=== PATIENT | male | born 1940 | race Caucasian/White ===

== ENCOUNTER 2024-02-05 09:17 | Inpatient (IN) | payer MEDICARE, BC, SELFPAY ==
[2024-02-03] VITALS (27 sets, daily range): BP systolic 99–137; BP diastolic 46–91
[2024-02-03] MEDS: NSS 223 ML IV (08:15)
[2024-02-03 08:16] LABS: Glucose - Point of Care 166 mg/dl (70-99)
--- NOTE | 2024-02-03 09:37 | ITS.CL.CATH ---
Script Coordinator - Catheterization
Cardiac Catheterization
Procedure Report:
CARDIAC CATHETERIZATION REPORT
Date of Procedure: 02/03/2024
Referring: Carlo Raines DO
Indication: Worsening angina in patient with known diffuse CAD and history CABG. Of note patient has a christopher josh aspirin allergy
�
HEMODYNAMIC DATA
AO: 137/58
LV: 140/12
�
LEFT VENTRICULOGRAPHY: Normal segmental wall motion with EF 59%
�
CORONARY ANGIOGRAPHY
Dominance: Right
Left Main: Normal
LAD: The LAD is occluded distal to the origin of the first septal narcotics and vice detective and medium sized first diagonal branch. There is 90% proximal stenosis in the first diagonal branch. The mid and distal LAD fill via a widely patent PIRES graft which
touches down in the mid LAD with excellent distal runoff. There is no LAD disease distal to the SHANA graft touchdown site and there is retrograde flow up the LAD from the graft to supply a large branching D2 and multiple septal perforators.
Circumflex: The circumflex is occluded distal to the takeoff of the relatively large OM1. OM1 has a 90% proximal to mid stenosis and then is occluded in the mid to distal segment. There is a bridging collateral which fills the distal vessel.
There is evidence that the vein graft to this vessel was stented just proximal to and at the touchdown site.. This graft itself is occluded.
RCA: The RCA is dominant with multiple stents in the proximal and mid vessel extending to proximal to the crux. There is 60% stenosis in the most distal portion of the stented segment. There is 60-70% distal RCA stenosis just past the crux. There
is 30% distal RCA stenosis proximal to a widely patent stent in the distal vessel proximal to the takeoff of the large PDA. The RPDA has relatively focal 80% mid stenosis just past a bifurcation point. The lesion is in the much larger daughter
branch. The RCA then gives rise to two small diseased RPL's and terminates with a large RPL 3. There is 60-70% AV groove stenosis proximal to the RPL 3
Bypass grafts:
1. The left internal mammary graft to the LAD remains widely patent with excellent runoff
2. Vein grafts to the OM1 and presumably RPDA were shown to be occluded on prior studies
�
Closure Device: None-the procedure was performed via the left radial artery. The Catarino's test was normal prior to the procedure.
�
Radiation (mGy): 451
DAP (cm2.Gy): 39.7
Fluoroscopy time: 4.3 minutes
�
CONCLUSIONS
1:�Normal left ventricular function with EF 59%
2:�Very severe multivessel [place] CAD with patent PIRES-LAD bypass graft.
3. Due to his worsening symptoms despite medical therapy, I have offered multisegment PCI of the RCA and we may also treat the diagonal branch of the LAD. He has a an aspirin allergy and will need aspirin desensitization prior to proceeding with
PCI. We will admit him to the hospital today for aspirin desensitization and then proceed with PCI tomorrow
�
�
Copy to: Carlo Raines DO, Chadwick Bacon MD
�
Luis Russell MD, [facility], [facility]
--- NOTE | 2024-02-03 10:51 | PTCARENOTE ---
patient arrived from color laboratory technician with left radial R band intact,distal pulse palpable. monitor shows NSR, VSS. patient is admitted for aspirin desensitization , waiting for pharmacy to initiate protocol. please see medication desensitization on work
list.
[2024-02-03] MEDS: ASPIRIN FOR DESENSITIZATION 5 MG PO (11:31)
[2024-02-03] MEDS: ASPIRIN FOR DESENSITIZATION 10 MG PO (12:03)
[2024-02-03] MEDS: ASPIRIN FOR DESENSITIZATION 20 MG PO (12:30)
[2024-02-03] MEDS: ASPIRIN FOR DESENSITIZATION 40 MG PO (13:01)
--- NOTE | 2024-02-03 13:04 | CM ---
Reviewed chart. Met with and Mrs. Mckeon to review discharge plans. He states prior to admission he resides with his spouse in a two story home with one step to enter from the garage. He states he has a fist floor set-up. He states prior to
admission he was independent with ambulation and adls. He states he does not have any DME in the home. He states he has a prescription plan and uses [facility]. The discharge plan is to return home with his spouse when medically stable.
[2024-02-03] MEDS: LOW STRENGTH ASPIRIN 81 MG PO (13:31)
--- NOTE | 2024-02-03 14:55 | PTCARENOTE ---
aspirin desensitization completed with no reaction, TT Dr. Russell.
[2024-02-03] MEDS: LOPRESSOR 25 MG PO (21:38)
[2024-02-03] MEDS: FLOMAX 0.4 MG PO (21:39)
[2024-02-03 22:25] LABS: Glucose - Point of Care 143 mg/dl (70-99)
[2024-02-04] VITALS (17 sets, daily range): BP systolic 78–119; BP diastolic 43–66
[2024-02-04 04:11] LABS: Hematocrit 30.6 % (39.0-52.0); Hemoglobin 10.6 g/dL (13.0-18.0); Mean Corp Hgb Conc. 34.6 g/dL (33.0-37.0); Mean Corpuscular Hgb 27.4 pg (27.0-31.0); Mean Corpuscular Volume 79.1 fL (80.0-94.0); Mean Platelet Volume 10.1 fL (7.4-10.4); Platelet Count 160 10^3/uL (130-400); Red Blood Cell Count 3.87 10^6/uL (4.70-6.10); Red Cell Dist. Width 14.6 % (11.5-14.5); White Blood Cell Count 5.4 10^3/uL (4.8-10.8)
[2024-02-04 04:32] LABS: Blood Urea Nitrogen 24 mg/dl (9-20); Calcium 9.5 mg/dl (8.4-10.2); Carbon Dioxide 25 mmol/L (22-30); Chloride 106 mmol/L (98-107); Estimated Creatinine Clearance 55 ml/min; Glucose 147 mg/dl (70-99); HDL Cholesterol 37 mg/dl; LDL Cholesterol, Calculated 74 mg/dl; Magnesium 1.7 mg/dl (1.6-2.3); Potassium 4.3 mmol/L (3.5-5.1); Sodium 137 mmol/L (135-145); Total Cholesterol 134 mg/dl (50-199); Triglyceride 119 mg/dl (10-149); Very Low Density Lipoprotein 23 mg/dl (0-30); eGFR > 60.00
--- NOTE | 2024-02-04 06:14 | PTCARENOTE ---
Pt. received at change of shift. VSS, NSR with BBB on tele. L radial cath site dry/intact. Education provided on activity restrictions and patient verbalizes understanding. Patient remains NPO for cardiac cath in AM. Ambulating independently
without difficulty. Can make needs known. Call valdez within reach.
[2024-02-04] MEDS: ZESTRIL 10 MG PO (09:18)
[2024-02-04] MEDS: LOPRESSOR 25 MG PO (09:19)
[2024-02-04] MEDS: LOW STRENGTH ASPIRIN 81 MG PO (09:19)
[2024-02-04] MEDS: IMDUR (EXTENDED RELEASE) 120 MG PO (09:19)
[2024-02-04] MEDS: ORETIC 25 MG PO (09:19)
[2024-02-04] MEDS: LIPITOR 40 MG PO (09:19)
[2024-02-04] MEDS: PLAVIX 75 MG PO (09:19)
--- NOTE | 2024-02-04 10:58 | CM ---
CM following for DC planning needs.
Met w/ patient and family at bedside. Reviewed in initial assessment. Pt. resides with spouse in a 55+ community. Pt. is functionally indep. w/ ADLs, mobility without the use of any assisted device.
Goal is for DC to home once medically stable.
Will follow for any needs that may arise.
[2024-02-04 13:13] LABS: ACT-LR - POC > 397 Seconds (116-155)
[2024-02-04 13:13] LABS: ACT-LR - POC > 397 Seconds (116-155)
[2024-02-04 13:13] LABS: ACT-LR - POC > 397 Seconds (116-155)
--- NOTE | 2024-02-04 13:26 | ITS.CL.ANGIO ---
Padded Box Sewer - Angioplasty
Angioplasty
Procedure Report:
CORONARY ANGIOPLASTY REPORT
Date of Procedure: 02/04/2024
Referring: Carlo Raines DO
Indication: Progressive angina with known severe CAD refractory to medical therapy
�
PROCEDURE SUMMARY:
1. Successful angioplasty and stenting of long segment mid to distal RCA disease using 3.0 x 38 [place] ABIGAIL
2. Successful stenting of 90% mid RPDA stenosis using 2.25 x 15 [place] ABIGAIL
3. Successful stenting of focal 70% distal RPL stenosis using 2.5 x 8 [place] ABIGAIL
�
DESCRIPTION OF PROCEDURE: The patient was admitted following diagnostic angiography yesterday for aspirin desensitization which was successfully accomplished yesterday. Using a micropuncture technique, 6 [place] sheath was placed in the right
femoral artery. Heparin was administered. A 6 [place] AL 0.75 guide was advanced to the RCA and provided truly outstanding backup support. This was one león to what was going to be a very challenging multisegment intervention. A short BMW wire was
advanced into the distal RCA and eventually across the distal RPL stenosis. A whisper wire was then advanced into the RCA and eventually across the mid RPDA stenosis. Balloon angioplasty of the RPDA lesion was accomplished with a 2.0 x 12 [place]
balloon to 14 dee. Of note, there was a waist on the balloon until we reached maximal pressure at which time it was completely relieved. We then attempted to advance a 2.25 x 15 [place] ABIGAIL to the lesion; however, it would not pass through the severe
mid RCA disease. The stent was carefully removed and predilatation of the mid RCA disease accomplished with a 2.75 x 15 NC Euphora to 18 dee. We used this balloon to treat the mid and mid to distal RCA disease. This allowed us to get the 2.25 x
15 [place] ABIGAIL to the target location where it was deployed at 14 dee then postdilated with a 2.25 NC Euphora to 17 dee. The final angiographic result in the RPDA was outstanding with no residual stenosis. At this point we attempted unsuccessfully to
pass a 2.5 x 8 [place] ABIGAIL to the distal RPL lesion. The whisper wire was removed from the PDA to allow us to place a guide liner over the BMW wire which had its tip in the distal RPL. Further angioplasty was performed of the distal RCA using a 3.0 x
15 NC Euphora. This allowed us to get the guide liner distally enough to pass the 2.5 x 8 [place] ABIGAIL to the target location in the right posterolateral branch. The stent was deployed at 14 dee then postdilated with a 2.5 x 6 NC Euphora to 17 dee.
The angiographic result was outstanding. Finally, we stented the long segment of disease in the mid to distal RCA the proximal two thirds of which represented in-stent disease with the distal third being outside of the stented segment. A 3.0 x 38
[place] ABIGAIL was deployed at 18 dee to achieve maximal expansion. A 3.25 NC Euphora was then used to post dilate the entire stented segment to 17-19 dee. The final angiographic result was outstanding. There were no procedural complications.
�
ANTI-COAGULATION THERAPY
1:�Heparin 6000 units
�
Closure Device Used: 6 [place]ese Angio-Seal RFA
�
Radiation (mGy): 672
DAP (cm2.Gy): 46
Fluoroscopy time: 17.9 minutes
�
CONCLUSIONS: Successful stenting of multisegment RCA disease as described. Recommend continue dual antiplatelet therapy for minimum 12 months. If aspirin is stopped at any time he will require repeat desensitization before reintroducing aspirin;
therefore, strongly recommend adherence to uninterrupted aspirin for at least the next 12 months
�
Copy to: Carlo Raines DO, Chadwick Bacon MD
�
Luis Russell MD, [facility], [facility]
�
--- NOTE | 2024-02-04 14:42 | PTCARENOTE ---
Addendum entered by Denice Blakely RN 02/04/24 18:43:
patient up in chair eating dinner, still has discomfort in left shoulder/arm area. right groin dsg. D/I, distal pulse palpable. will continue to assess.
Original Note:
patient returned from biological lab technician at 1336, placed on monitor SB, BP 91/54, right groin dsg. D/I,no hematoma, no ecchymosis,distal pulse palpable. IVF infusing as ordered. patient c/o left shoulder/arm pain, Dr. aware.
at 1407 BP82/48,78/46, 92/43 , placed patient in Trendelenburg, pale, discomfort in left arm. EKG obtained. Diana Coelho NP in room, BP came up,right groin remains D/I. 1 L of IVF given as ordered.
[2024-02-04] MEDS: TYLENOL 650 MG PO (18:46)
--- NOTE | 2024-02-04 18:47 | PTCARENOTE ---
Tylenol po given for shoulder/arm pain as ordered.
--- NOTE | 2024-02-04 21:46 | PTCARENOTE ---
Received the patient for the night in the chair. R femoral and L radial dressings CDI. SR on the monitor. Patient has no complaints of pain. BP 95/52, contacted Dr. Smiley for Lopressor parameters due to low BPs post procedure. As per Dr. Smiley
8pm dose of Lopressor held.
[2024-02-04] MEDS: FLOMAX 0.4 MG PO (22:18)
[2024-02-05] VITALS (19 sets, daily range): BP systolic 84–151; BP diastolic 47–76
[2024-02-05 04:40] LABS: Hematocrit 31.6 % (39.0-52.0); Hemoglobin 10.9 g/dL (13.0-18.0); Mean Corp Hgb Conc. 34.5 g/dL (33.0-37.0); Mean Corpuscular Hgb 28.1 pg (27.0-31.0); Mean Corpuscular Volume 81.4 fL (80.0-94.0); Mean Platelet Volume 9.4 fL (7.4-10.4); Platelet Count 136 10^3/uL (130-400); Red Blood Cell Count 3.88 10^6/uL (4.70-6.10); Red Cell Dist. Width 14.9 % (11.5-14.5); White Blood Cell Count 5.5 10^3/uL (4.8-10.8)
[2024-02-05 05:04] LABS: Blood Urea Nitrogen 27 mg/dl (9-20); Calcium 9.3 mg/dl (8.4-10.2); Carbon Dioxide 23 mmol/L (22-30); Chloride 106 mmol/L (98-107); Estimated Creatinine Clearance 55 ml/min; Glucose 163 mg/dl (70-99); Potassium 3.9 mmol/L (3.5-5.1); Sodium 135 mmol/L (135-145); eGFR > 60.00
[2024-02-05] MEDS: NITROSTAT (SUBLINGUAL) 0.4 MG SL ×2 (05:45→06:01)
--- NOTE | 2024-02-05 06:06 | PTCARENOTE ---
At 05:30 Patient complains of 5/10 chest pain in the center of his chest and both arms that he describes as aching. An EKG was obtained and showed SR with BBB. Patient also showed some tachycardia on the monitor. 05:45 SL Nitro was administered with
the pain being a 5/10. at 05:51 the pain was reassessed as a 4/10. Another SL Nitro was given at 06:01 for 3/10 chest pain. Present pain level is 0/10.
--- NOTE | 2024-02-05 06:48 | W.PN.UPDATE ---
Update Note
Progress Note Update
-pt c/o 6/10 CP at 5:45 am, felt similar to his prior CP. BP was 150/75, hr 94, pOx 100 on RA. ECG with nsr, RBBB with secondary STTW abnormalities without much change from ECG on 02/03. Pt had 3 stents on 02/03 to RCA, RPDA, and RPL. He has known 90%
stenosis of OM1 and D1 with patent [place] to LAD and occluded 2 vein grafts.
-gave 2 sublingual Nitros, started O2 and CP resolved. BP after Nitros is 125/67. Pt appears more comfortable.
-sent troponin- pending
-discussed with Dr. Smiley. Will consider Nitro drip if develops more sxs. Will continue to monitor.
[2024-02-05 06:49] LABS: Troponin I 0.504 ng/ml
[2024-02-05] MEDS: TYLENOL 650 MG PO (08:08)
[2024-02-05] MEDS: LIPITOR 40 MG PO (08:09)
[2024-02-05] MEDS: IMDUR (EXTENDED RELEASE) 120 MG PO (08:09)
[2024-02-05] MEDS: PLAVIX 75 MG PO (08:09)
[2024-02-05] MEDS: ORETIC 25 MG PO (08:09)
[2024-02-05] MEDS: LOPRESSOR 25 MG PO (08:09)
[2024-02-05] MEDS: LOW STRENGTH ASPIRIN 81 MG PO (08:09)
--- NOTE | 2024-02-05 08:32 | W.PN.CARDCBS ---
Today's Communication / Plan
-
post PCI RCA x 3
DAPT ASA/Plavix
medical therapy for residual small vessel disease
oob ambulate this am, poss d/c home later today
Impression / Plan
-
PCP: Chadwick Bacon MD
CDY: Carlo Raines, DO
Impression/Plan:
CAD/CABGx4 1999- MV CAD by cath 02/02, Aspirin allergy - anaphylaxis post successful desensitization now post PCI mid RCA, RPDA and RPL x3 ABIGAIL 02/03
had some chest pain o/n improving this am, insignificant troponin elevation d/t MV stenting
medical therapy for small diagonal 1, PIRES to LAD patent
DAPT ASA/Plavix, reinforced importance of NEVER stopping ASA ever
continue isosorbide 120, BB held for low bp last night, HR elevated this am, resume now switch to toprol 25mg bid
BP low last night will stop HCTZ and decrease lisinopril to 5mg daily
Cardiac rehab c/s
f/u Dr. Raines 2-4 weeks
oob ambulate after am meds to assess chest pain
Hyperlipidemia - LDL 74 goal under 55, will stop simvastatin switch to atorvastatin 40mg daily
NIDDM - Check A1c, holding Janumet post procedures, resume on friday evening
BPH - continue tamsulosin
Prostate cancer
RBBB
SVT
Mild aortic root dilatation
mild MARY
Cataracts
02/04/2024 PROCEDURE SUMMARY:
1. Successful angioplasty and stenting of long segment mid to distal RCA disease using 3.0 x 38 Elie ABIGAIL
2. Successful stenting of 90% mid RPDA stenosis using 2.25 x 15 [place] ABIGAIL
3. Successful stenting of focal 70% distal RPL stenosis using 2.5 x 8 [place] ABIGAIL
Progress Note - Veterinary Medical Officer
Subjective
Date of Service: February 05, 2024
still with mild 2/10 chest/b/l arm pain, no sob
Objective
Labs:
02/05/24 04:34
02/05/24 04:34
Labs
Hgb 10.9 g/dL (13.0-18.0) L 02/05/24 04:34
Hct 31.6 % (39.0-52.0) L 02/05/24 04:34
Plt Count 136 10^3/uL (130-400) 02/05/24 04:34
Sodium 135 mmol/L (135-145) 02/05/24 04:34
Potassium 3.9 mmol/L (3.5-5.1) 02/05/24 04:34
BUN 27 mg/dl (9-20) H 02/05/24 04:34
Creatinine 0.9 mg/dL (0.7-1.3) 02/05/24 04:34
Glucose 163 mg/dl (70-99) H 02/05/24 04:34
Troponins
02/05/24
06:12
Troponin I 0.504 H*
Vital Signs and I&O:
Vital Signs
Temp Pulse Resp BP Pulse Ox
98.6 F 87 20 118/59 97
02/05/24 07:30 02/05/24 07:31 02/05/24 07:30 02/05/24 07:31 02/05/24 08:23
Vital Signs
Temp Pulse Resp BP Pulse Ox
98.6 F 87 20 118/59 97
02/05/24 07:30 02/05/24 07:31 02/05/24 07:30 02/05/24 07:31 02/05/24 08:23
Intake & Output
02/03/24 02/04/24 02/05/24 02/06/24
06:59 06:59 06:59 06:59
Intake Total 223 / 223
Balance 223 / 223
Physical Exam
Physical Exam
NAD< AAox3
S1, S2, RRR, II/ YG
CTAB, non labored, no wheeze
SNTND bsx4
R rad site good pulse, scant ecchymosis
R fem site c/d/i soft, no HT
--- NOTE | 2024-02-05 09:14 | W.PN.UPDATE ---
Update Note
Progress Note Update
Post complex multisegment RCA PCI yesterday. Had some chest symptoms walking to bathroom. Troponin 0.5 totally consistent with complex PCI and not indicative of a type IV myocardial infarction.
ECG this AM unchanged vs pre and post PCI
Plan to walk pt this AM and discharge after lunch if stable.
[2024-02-05] MEDS: ZESTRIL PO (09:25)
--- NOTE | 2024-02-05 11:14 | CM ---
CM following for DC planning needs.
Met w/ patient at bedside. He reports that he is feeling well. He is hopeful for DC soon but not sure it will be today.
Pt. anticipates no needs at time of DC.
CM will cont. to follow.
--- NOTE | 2024-02-05 13:54 | PTCARENOTE ---
Pt walked <100 feet this morning and reported 1-2/10 chest discomfort by the end of the walk, Nataly Pearl NP notified. After lunch pt walked around entire CV/IVU without chest discomfort. Some low BP's this morning, medications being adjusted by Nataly
TOM Pearl.
--- NOTE | 2024-02-05 14:30 | W.DS.TRANS ---
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
-
Discharge Instructions:
Discharge Diagnosis/Procedures Aspirin desensitization 02/02, Angioplasty with
stent to RCA x 3 (02/03)
Diet Low Cholesterol,Diabetic, Carb Controlled
Driving Restrictions No driving for 24 hours
Other Services Cardiac Rehab
Instructions:
Stand-Alone Forms: DC Instructions- Cath/EP Lab
Changes to Home Medications: Yes
Discharge Medications:
DC Medications w/original date entered in [employer]
clopidogrel 75 mg tablet 75 mg PO DAILY 01/06/19
tamsulosin 0.4 mg capsule 0.4 mg PO HS 01/06/19
acetaminophen 325 mg capsule (Tylenol) 325 mg PO ONCE PRN pain 04/12/22
nitroglycerin 0.4 mg sublingual tablet 0.4 mg sublingual Q5-15M PRN chest pain 04/12/22
sitagliptin phos 50 mg-metformin ER 1,000 mg tablet,extend rel 24h mp (Janumet XR) 1 tab PO QPM 04/12/22
isosorbide mononitrate 30 mg tablet,extended release 24 hr 120 mg PO DAILY 02/03/24
aspirin 81 mg chewable tablet 81 mg PO DAILY #1 tab 02/05/24
atorvastatin 40 mg tablet 40 mg PO DAILY #90 tabs 02/05/24
lisinopril 10 mg tablet 5 mg (1/2 x 10 mg) PO DAILY #1 tab 02/05/24
metoprolol succinate 25 mg tablet,extended release 24 hr 25 mg PO BID #60 tabs 02/05/24
Home Medication Changes
stop HCTZ, metoprolol tartrate, and simvastatin, decrease lisinopril to 5mg, new to plavix, nitro, atrovastatin and toprol
Pending Results: Yes
Additional Pending Results:
A1c
[2024-02-05 14:36] LABS: Glycohemoglobin (HgbA1c) 6.7 % (4.0-5.6)
--- NOTE | 2024-02-05 16:03 | PTCARENOTE ---
Pt seen by Nataly Pearl NP. Telemetry and IV device removed. Discharge instructions reviewed with pt regarding activity and driving guidelines, medications and their new doses and possible side effects, wound care, reporting cares and concerns and
follow up appt's. Good understanding verbalized. Pt escorted out via wheelchair and discharged to home.
== END 2024-02-05 15:10 | disposition home or self-care (01) | DRG 322 ==
LOC: IVU 09:17
PROVIDERS: Nurse Practitioner Adult Health; Physician Assistant Medical; ADMITTING PHYSICIAN Internal Medicine Cardiovascular Disease; FAMILY PHYSICIAN Family Medicine
PROC: B2181ZZ Fluoroscopy of Left Internal Mammary Bypass Graft using Low Osmolar Contrast (ICD-10-PCS; 2024-02-03)
PROC: B2151ZZ Fluoroscopy of Left Heart using Low Osmolar Contrast (ICD-10-PCS; 2024-02-03)
PROC: B2111ZZ Fluoroscopy of Multiple Coronary Arteries using Low Osmolar Contrast (ICD-10-PCS; 2024-02-03)
PROC: 4A023N7 Measurement of Cardiac Sampling and Pressure, Left Heart, Percutaneous Approach (ICD-10-PCS; 2024-02-03)
PROC: B2121ZZ Fluoroscopy of Single Coronary Artery Bypass Graft using Low Osmolar Contrast (ICD-10-PCS; 2024-02-03)
PROC: 027236Z Dilation of Coronary Artery, Three Arteries with Three Drug-eluting Intraluminal Devices, Percutaneous Approach (ICD-10-PCS; 2024-02-04)
DX: I25.110 Atherosclerotic heart disease of native coronary artery with unstable angina pectoris (principal); I47.10 Supraventricular tachycardia, unspecified; Z88.6 Allergy status to analgesic agent; E78.5 Hyperlipidemia, unspecified; E11.9 Type 2 diabetes mellitus without complications; N40.0 Benign prostatic hyperplasia without lower urinary tract symptoms; I45.10 Unspecified right bundle-branch block; H26.9 Unspecified cataract; Z85.46 Personal history of malignant neoplasm of prostate; Z95.1 Presence of aortocoronary bypass graft; Z95.5 Presence of coronary angioplasty implant and graft
CPT/HCPCS: 80048; 80061; 82962; 83036; 83735; 84484; 85027; 85347; 93005; 93459; C1725; C1760; C1769; C1874; C1887; C1894; C9600; C9601; Q9967

== ENCOUNTER 2024-02-06 19:51 | Observation (INO) | payer MEDICARE, BC, SELFPAY ==
[2024-02-06] VITALS (9 sets, daily range): BP systolic 95–136; BP diastolic 49–66; BMI 27.9; BMI 27.3
[2024-02-06 17:30] LABS: Hematocrit 30.8 % (39.0-52.0); Hemoglobin 10.6 g/dL (13.0-18.0); Mean Corp Hgb Conc. 34.4 g/dL (33.0-37.0); Mean Corpuscular Hgb 27.8 pg (27.0-31.0); Mean Corpuscular Volume 80.8 fL (80.0-94.0); Mean Platelet Volume 9.7 fL (7.4-10.4); Platelet Count 171 10^3/uL (130-400); Red Blood Cell Count 3.81 10^6/uL (4.70-6.10); Red Cell Dist. Width 14.8 % (11.5-14.5)
[2024-02-06 17:53] LABS: Blood Urea Nitrogen 30 mg/dl (9-20); Calcium 9.8 mg/dl (8.4-10.2); Carbon Dioxide 22 mmol/L (22-30); Chloride 101 mmol/L (98-107); Estimated Creatinine Clearance 33 ml/min; Glucose 199 mg/dl (70-99); Potassium 3.8 mmol/L (3.5-5.1); Sodium 134 mmol/L (135-145); eGFR 49.87
[2024-02-06 18:03] LABS: Troponin I 0.332 ng/ml
--- NOTE | 2024-02-06 18:15 | ED.GENMED ---
History of Present Illness
General
Chief Complaint: Chest Pain
Source: patient
Exam Limitations: none
Time Seen by Provider: 02/06/24 17:14
Nursing documentation reviewed up to this point in time: agreed with
History of Present Illness
History of Present Illness:
Patient is status post cardiac stent placement 2 days ago, discharged home yesterday, presents to ED secondary to recurrent chest pain since being discharged home. Patient has taken nitroglycerin tablets at home with mild relief in symptoms.
Patient spoke with his primary plumbing manager, Dr. Raines at [facility], who recommended patient come to ED for an evaluation. Denies shortness of breath. Denies nausea or vomiting. Denies dizziness. Denies diaphoresis. Patient states
that his chest pain is similar to when he received cardiac stents.
Review of Systems
Review of Systems
Allergies reviewed?: Yes
All Other Systems: ROS reviewed and negative except as documented in HPI and ROS
Constitutional: Reports no symptoms
Respiratory: Reports no symptoms; Denies trouble breathing
Cardiac: Reports chest pain
ABD/GI: Reports no symptoms
Musculoskeletal: Reports no symptoms
Skin: Reports no symptoms
Neurological: Reports no symptoms
Phy Exam
Physical Exam
Physical Exam:
Physical Exam
General: mild distress, not acutely ill. afebrile
Head: nc/at. eomi
Neck: supple. no meningeal signs
Heart: s1/s2 regular rate and rhythm, no murmur. equal radial pulses.
Lungs: no acute respiratory distress. clear bilaterally
Abdomen: normal bowel sounds. not tender.
Neuro: alert and oriented. no focal neurological deficits
Skin: no rash
Psychiatric: well kept. interactive and cooperative
Extremities: no edema. no calf tenderness.
Scores
Heart Score for Chest Pain Patients
STEMI patient?: No
History: Moderately Suspicious
ECG: Nonspecific Repolarization
Age: >/= 65 years
Risk Factors: >/= 3 Risk Factors or History of CAD
Troponin: >1 - <3 x Normal Limit
Heart Score for Chest Pain Patients: 7
Heart Score Risk: 72.7 % MACE over next 6 weeks
Course
Orders/Labs/Results
Orders:
Orders
02/06/24 Dinner
Regular
At Your Request: Limited Participation
Does patient need a safe tray?: No
02/06/24 16:53
EKG [Electrocardiogram (*1)] Urgent
Reason for Study: Chest Pain
EKG- Treatment ONCE
02/06/24 17:15
CR Chest Portable - 1 View Urgent
Comment:
Reason For Exam: chest pain
Reason Study Needs to be Portable: Patient Unstable
02/06/24 17:25
Basic Metabolic Panel Urgent
Complete Blood Count/No Diff Urgent
Troponin I Urgent
02/06/24 19:22
Admit/Transfer Patient As Directed
Co-Sign Provider:
Level of Care: Observation services
Assign to:: Telemetry
Physician / Group: dannie
Diagnosis: chest pain
Reason for Telemetry: Arrhythmia
Date to Stop Telemetry: 02/09/24
Time to Stop Telemetry: 11:00
Code Status As Directed
Resuscitation Status: Full Code
PRN Pain Medication Management As Directed
May give lesser potent ordered pain med per pt: Yes
preference::
Protocol:: Medication orders for pain may be administered in a
manner that supports deferring to patient preference
when the pt is:
- Requesting an ordered lesser potent pain medication.
Least to most potent pain medications are defined
as: acetaminophen < NSAID < tramadol < opioids
(morphine, oxycodone, hydromorphone).
- Requesting a lesser dose of the same medication IF
ORDERED.
- Requesting a less intrusive route of administration
if both routes are prescribed by the provider (PO <
IV).
02/06/24 20:16
0.9% Sodium Chloride 1000 ml [Nss] 1,000 ml IV 70 mls/hr
Acetaminophen [Tylenol] 325 mg PO ONCE PRN PRN
Dextrose 50%-Water [Dextrose 50% Syringe] 12.5 grams IV [id number] PRN
Glucagon [GlucaGen] 1 mg IM PRN PRN
Heparin 5,000 units SC Q12
Metoprolol Xl [Toprol Xl] 25 mg PO BID
Nitroglycerin Sublingual [Nitrostat (Sublingual)] 0.4 mg SL [id number] PRN
02/06/24 20:16
CARDIOLOGY CONSULT Routine
Consulting Provider: Barrie Nguyen
Was physician already notified: Yes
Activity As Directed
Activity Level: As Tolerated
Bedside Glucose Monitoring As Directed
Frequency: AC&HS
Additional Instructions:: Change to q6h if pt on TPN, tube feeding or not eating
Vital Signs As Directed
Frequency: Per unit guidelines
DX Deep Vein Thrombosis Video Routine
02/06/24 20:41
Troponin I Q6H
02/06/24 22:00
Tamsulosin [Flomax] 0.4 mg PO HS
02/07/24 02:16
Troponin I Q6H
02/07/24 06:48
Complete Blood Count/With Diff IN AM
Comprehensive Metabolic Panel IN AM
Troponin I Q6H
02/07/24 07:30
Insulin Aspart Corrective Low [Novolog Flexpen-Low Resistance] See Protocol SC AC
02/07/24 08:00
Aspirin Chewable [Low Strength Aspirin] 81 mg PO DAILY
Atorvastatin [Lipitor] 40 mg PO DAILY
Clopidogrel Bisulfate [Plavix] 75 mg PO DAILY
ISOSORBIDE MONOnitrate ER [Imdur (Extended Release)] 120 mg PO DAILY
02/09/24 11:00
DC Protocol for Telemetry ONCE
Abnormal Lab Results
02/06/24
17:25
RBC 3.81 L 10^6/uL
(4.70-6.10)
Hgb 10.6 L g/dL
(13.0-18.0)
Hct 30.8 L %
(39.0-52.0)
RDW 14.8 H %
(11.5-14.5)
Sodium 134 L mmol/L
(135-145)
BUN 30 H mg/dl
(9-20)
Creatinine 1.4 H mg/dL
(0.7-1.3)
Glucose 199 H mg/dl
(70-99)
Troponin I 0.332 H* ng/ml
02/06/24 17:25
02/06/24 17:25
Vital Signs
Initial and Last Documented VS:
Initial Vital Signs
Temp Pulse Resp BP Pulse Ox
98 F 89 18 95/65 96
02/06/24 16:52 02/06/24 16:52 02/06/24 16:52 02/06/24 16:52 02/06/24 16:52
Last Documented Vital Signs
Temp Pulse Resp BP Pulse Ox
98.0 F 70 16 117/51 96
02/07/24 07:55 02/07/24 07:57 02/07/24 07:55 02/07/24 07:57 02/07/24 07:55
MDM/Problems Addressed
MDM/Problems Addressed:
As patient is continued to have symptoms, despite recent catheterization with stent placement, likely secondary to residual disease, patient will be admitted for symptomatic treatment. Discussed with on-call plumbing manager, Dr. Nguyen, who
recommends that patient receive nitroglycerin as needed for chest pain along with continued trending of cardiac enzymes.
*EKG
EKG Intrepretation Date: 02/06/24
Heart Rate: 77
Rate: normal
[place]: normal axis
QRS Pattern: right bundle branch block
*Critical Care Note
Total Time (30-74mins, 75-104mins- exclusive of procedures): Not Applicable
ED Attending Note
-
Portions of this chart may have been created with voice recognition software.� Occasional wrong word or��sound alike� substitutions may have occurred due to the inherent limitations of voice recognition software.
Discharge Plan
Departure
Patient Disposition: Admit
Date of Disposition: 02/06/24
Time of Disposition: 18:21
Presentation/result/management discussed w/ accepting MD/DO: Hospitalist
Discharge Problem:
Chest pain
Interventions
Interventions:
*Risk Screen - Suicide Last Done: 02/06/24 16:52
*General Assessment Last Done: 02/06/24 16:52
*Neglect/Abuse Screening Last Done: 02/06/24 16:52
ED- Fall Risk Assessment Last Done: 02/06/24 20:14
*Nursing Disposition Last Done: 02/06/24 20:14
ED- Cardiac Assessment Last Done: 02/06/24 17:20
Discharge Date and Time
Discharge Date/Time: 02/06/24 20:14
--- NOTE | 2024-02-06 19:24 | HPS.HSE ---
Family Physician
-
Family Physician: NOT KNOW UNKNOWN - PT DOES
Chief Complaint
-
chest pain
History of Present Illness
83-year-old male past medical history of CAD status post stents 2 days ago, CABG 20 years ago, hyperlipidemia, diabetes, BPH, prostate cancer, right bundle branch for, SVT, mild aortic root dilation, cataracts, presenting with ongoing intermittent
chest pain despite cardiac stents placed 2 days ago. He has had this pain prior to the stents which is described as chest pressure which sometimes radiates to the jaw and sometimes comes on with exertion. After stents were placed he states that
the pain is improved but still comes on sometimes. Last night he could not sleep due to the pain and his heart rate was elevated. Pain did improve with nitroglycerin. He called his ear flap binder Dr. Raines at [facility] who told him to
come to the hospital. He denies any shortness of breath. He denies any nausea or vomiting. Denies any sweating.
He may have gained 2 pounds recently. He denies any lower extremity edema.
He denies smoking. He drinks wine sometimes.
Medical History
Past Medical History
Past Medical History: Reports Other (CAD status post stents 2 days ago, CABG 20 years ago, hyperlipidemia, diabetes, BPH, prostate cancer, right bundle branch for, SVT, mild aortic root dilation, cataracts, )
Past Surgical History: Reports None
Social History
Tobacco: Non-smoker
Alcohol: None
Drug: None
Family History
Family History: Not pertinent
Allergies / Home Medications
Allergies reflects when Allergies were last updated in [facility].
Home Medications with original date entered in [facility]
Allergy/Medication List:
Allergies
Allergy/AdvReac Type Severity Reaction Status Date / Time
aspirin Allergy Anaphylaxis Verified 02/04/24 20:23
Home Medications
clopidogrel 75 mg tablet 75 mg PO DAILY 01/06/19
tamsulosin 0.4 mg capsule 0.4 mg PO HS 01/06/19
acetaminophen 325 mg capsule (Tylenol) 325 mg PO ONCE PRN pain 04/12/22
nitroglycerin 0.4 mg sublingual tablet 0.4 mg sublingual Q5-15M PRN chest pain 04/12/22
sitagliptin phos 50 mg-metformin ER 1,000 mg tablet,extend rel 24h mp (Janumet XR) 1 tab PO BID 04/12/22
isosorbide mononitrate 30 mg tablet,extended release 24 hr 120 mg PO DAILY 02/03/24
aspirin 81 mg chewable tablet 81 mg PO DAILY #1 tab 02/05/24
atorvastatin 40 mg tablet 40 mg PO DAILY #90 tabs 02/05/24
lisinopril 10 mg tablet 5 mg (1/2 x 10 mg) PO DAILY #1 tab 02/05/24
metoprolol succinate 25 mg tablet,extended release 24 hr 25 mg PO BID #60 tabs 02/05/24
Review of Systems
-
History Source: Patient
A 12 point ROS was completed and negative except as noted: Yes
Constitutional: Reports No Symptoms
EENT: Reports No Symptoms
Respiratory: Reports See HPI
Cardiac: Reports See HPI
Abdomen/GI: Reports No Symptoms
: Reports No Symptoms
Musculoskeletal: Reports No Symptoms
Skin: Reports No Symptoms
Neurological: Reports No Symptoms
Endocrine: Reports No Symptoms
Hematologic/Lymphatic: Reports No Symptoms
Psych: Reports No Symptoms
Physical Exam
Vital Signs
Vital Signs
Temp Pulse Resp BP Pulse Ox
98 F 83 15 110/55 95
02/06/24 16:52 02/06/24 18:45 02/06/24 18:45 02/06/24 18:30 02/06/24 18:45
Physical Exam
General: Well Developed, Well Nourished and No Apparent Distress
HEENT: NormoCephalic, Moist mucous membranes and Atraumatic
Respiratory: Clear
Cardiac: S1/S2 and Regular Rhythm; No Murmur or Rub
GI: Soft, Non Tender, Non Distended and Normal Bowel Sounds; No Organomegaly
Rectal: Deferred by Provider
Musculoskeletal: No Clubbing, No Cyanosis and No Edema
Skin: No Rash
Neuro: Nonfocal/grossly intact
Laboratory Results
-
02/06/24 17:25
02/06/24 17:25
Laboratory Results
Troponin I 0.332 ng/ml H* 02/06/24 17:25
Data Reviewed
-
Lab Data: Labs Reviewed by me
Old Records: Reviewed
Impression/Plan
-
IMPRESSION:
PLAN:
# Ongoing chest pain despite cardiac stents
# History of severe CAD status post stent of mid to distal RCA, mid RPDA, distal RPL stenosis 2 days ago
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
-Troponin of 0.332, decreased from 0.504 yesterday
-Trend troponin
-Continue aspirin, Plavix, statin,
-Continue isosorbide mononitrate
-Nitroglycerin as needed
-Continue metoprolol
-Continue lisinopril
-cards
# Acute kidney injury secondary to contrast
-Gentle IV fluids
-Hold lisinopril
-Hold Janumet
Mild aortic root dilation
History of SVT
History of right bundle branch block
Hyperlipidemia
-Continue statin
Type 2 diabetes
-Hold Janumet
-Insulin sliding scale
BPH
-Continue tamsulosin
Prostate cancer
Cataracts
Full code
DVT prophylaxis�heparin
Regular diet
[2024-02-06] MEDS: HEPARIN 5000 UNITS SC (21:03)
[2024-02-06] MEDS: NSS 1000 IV (21:04)
[2024-02-06] MEDS: FLOMAX 0.4 MG PO (21:04)
[2024-02-06] MEDS: TOPROL XL 25 MG PO (21:04)
[2024-02-06 21:11] LABS: Troponin I 0.358 ng/ml
--- NOTE | 2024-02-06 21:30 | PTCARENOTE ---
Receive the pt from ER. Pt alert oriented X3, calm, pleasant and cooperative. Pt assist X1 to his bed, steady on his feet. Pt denies chest pain, SOB, chills, or fever. Pt oriented to the room, call valdez within reach. Pt on NSR on telemonitor. VSS
(T=97.9, HR=83, RR=18, XC=114/66, SpO2=96% on RA). Troponin was drawn came back 0.358, slightly up from 0.332 earlier in ER. Instruct the pt to call if there is any chest pain, SOB, or change in his condition. Will continue to monitor the pt.
[2024-02-06 21:32] LABS: Glucose - Point of Care 147 mg/dl (70-99)
[2024-02-07] VITALS (8 sets, daily range): BP systolic 100–131; BP diastolic 50–58; BMI 27.6
[2024-02-07 03:03] LABS: Troponin I 0.274 ng/ml
[2024-02-07 07:41] LABS: Glucose - Point of Care 195 mg/dl (70-99)
[2024-02-07] MEDS: NOVOLOG FLEXPEN-LOW RESISTANCE 1 UNITS SC ×2 (07:55→12:36)
[2024-02-07] MEDS: LOW STRENGTH ASPIRIN 81 MG PO (07:55)
[2024-02-07] MEDS: HEPARIN 5000 UNITS SC (07:56)
[2024-02-07] MEDS: TOPROL XL 25 MG PO (07:57)
[2024-02-07] MEDS: LIPITOR 40 MG PO (07:57)
[2024-02-07] MEDS: PLAVIX 75 MG PO (07:57)
[2024-02-07] MEDS: IMDUR (EXTENDED RELEASE) 120 MG PO (07:57)
[2024-02-07 08:00] LABS: % Basophils 0.4 % (0-2); % Eosinophils 3.3 % (0-6); % Immature Granulocytes 0.4 % (0-0.5); % Lymphocytes 17.8 % (20.5-51.1); % Monocytes 8.8 % (1.7-9.3); % Neutrophils 69.3 % (42.2-75.2); Absolute Eosinophils 0.2 10^3/uL (0-0.7); Absolute Lymphocytes 0.8 10^3/uL (1.2-3.4); Absolute Monocytes 0.4 10^3/uL (0.1-0.6); Absolute Neutrophils 3.1 10^3/uL (1.4-6.5); Hematocrit 30.2 % (39.0-52.0); Hemoglobin 10.3 g/dL (13.0-18.0); Mean Corp Hgb Conc. 34.1 g/dL (33.0-37.0); Mean Corpuscular Hgb 27.3 pg (27.0-31.0); Mean Corpuscular Volume 80.1 fL (80.0-94.0); Mean Platelet Volume 10.5 fL (7.4-10.4); Nucleated Red Blood Cells % 0 % (-); Platelet Count 161 10^3/uL (130-400); Red Blood Cell Count 3.77 10^6/uL (4.70-6.10); Red Cell Dist. Width 14.7 % (11.5-14.5); White Blood Cell Count 4.5 10^3/uL (4.8-10.8)
[2024-02-07 08:46] LABS: Troponin I 0.266 ng/ml
[2024-02-07 08:55] LABS: ALT (SGPT) 12 U/L (0-50); AST (SGOT) 16 U/L (17-59); Albumin 3.7 g/dl (3.5-5.0); Alkaline Phosphatase 61 U/L (38-126); Blood Urea Nitrogen 23 mg/dl (9-20); Calcium 8.9 mg/dl (8.4-10.2); Carbon Dioxide 22 mmol/L (22-30); Chloride 106 mmol/L (98-107); Estimated Creatinine Clearance 47 ml/min; Glucose 164 mg/dl (70-99); Potassium 3.7 mmol/L (3.5-5.1); Sodium 136 mmol/L (135-145); Total Bilirubin 0.9 mg/dl (0.2-1.3); Total Protein 6.1 g/dl (6.3-8.2); eGFR > 60.00
--- NOTE | 2024-02-07 11:07 | W.PN.HOSP.TC ---
Today's Communication/Plan
-
await cards input
Assessment / Plan
Assessment / Plan
pt is an 83 year old male
chest pain (ongoing) despite cardiac stents 02/03--was d/c 02/04 (History of severe CAD status post stent of mid to distal RCA, mid RPDA, distal RPL stenosis 2 days ago)(History of quadruple CABG 20 years ago)--troponin downtrending (0.504 to
0.332)--await cards-Continue aspirin, Plavix, statin-Continue isosorbide mononitrate-Nitroglycerin as needed-Continue metoprolol-Continue lisinopril
Acute kidney injury secondary to contrast--resolved--restart janument--hold lisinopril for now
Mild aortic root dilation
History of SVT
Hyperlipidemia--Continue statin
Type 2 diabetes--restart Janumet--Insulin sliding scale
BPH--Continue tamsulosin
Prostate cancer
Cataracts
Full code
DVT prophylaxis�heparin
Anticipated Discharge: Within 24 hours
Subjective/Interval History
-
Date of Service: February 07, 2024
pt chest pain free
Objective Data
-
Labs:
Laboratory Results
02/07/24
06:48
WBC 4.5 L
Hgb 10.3 L
Hct 30.2 L
Plt Count 161
Sodium 136
Potassium 3.7
Chloride 106
Carbon Dioxide 22
BUN 23 H
Creatinine 1.0
Glucose 164 H
Calcium 8.9
Total Bilirubin 0.9
AST 16 L
ALT 12
Alkaline Phosphatase 61
Vital Signs:
max temp for 24 hours
02/07/24
03:18
Temp 98.3 F
Vital Signs
Temp Pulse Resp BP Pulse Ox
98.0 F 70 16 117/51 96
02/07/24 07:55 02/07/24 07:57 02/07/24 07:55 02/07/24 07:57 02/07/24 07:55
I&O
02/06/24 02/07/24 02/08/24
06:59 06:59 06:59
Intake Total 870 / 870
Output Total 550 / 550
Balance 320 / 320
Review of Systems
-
All other systems: Reviewed and negative
Physical Exam
-
General: Well Developed, Well Nourished and No Apparent Distress
HEENT: Normocephalic and Atraumatic
Respiratory: Clear to Auscultation; Negative Wheezes or Rhonchi
Cardiac: Regular Rhythm and S1/S2; Negative Murmur
GI: Soft, Nontender, Nondistended and Normal Bowel Sounds
Musculoskeletal: No Clubbing, No Cyanosis and No Edema
Neuro: Awake and Alert
Psych: Calm
[2024-02-07] MEDS: NSS IV (11:38)
--- NOTE | 2024-02-07 11:59 | CON.CAR ---
Consultation
Consultation Request
Date/Time Consultation Requested: Feb 05 8:15 pm
Date/Time Consultation Performed: Feb 06 12:00 pm
Requesting Provider: hospitalist
Performing Provider: Barrie Nguyen
Reason for Consultation: CP
Medical History
-
Chief Complaint: CP
History of Present Illness:
83-year-old male past medical history of CAD status post stents 2 days ago, CABG 20 years ago, hyperlipidemia, diabetes, BPH, prostate cancer, right bundle branch for, SVT, mild aortic root dilation, cataracts, presenting with ongoing intermittent
chest pain despite cardiac stents placed 2 days ago. This chest pain is a similar to what brought him in a few days ago. He additionally had the chest pain the morning after stenting. He took nitroglycerin with some relief. He has not had any
more chest pain since yesterday. He tells me that he had it once. Otherwise, he has no other cardiovascular symptoms.
Past Medical History
Past Medical History: Other (CAD status post stents 2 days ago, CABG 20 years ago, hyperlipidemia, diabetes, BPH, prostate cancer, right bundle branch for, SVT, mild aortic root dilation, cataracts, )
Past Surgical History: None
Social History
Tobacco: Non-Smoker
Alcohol: None
Drug: None
Personal:
Family History
Family History: Reviewed & Not Pertinent
Allergies / Home Medications
Allergy/AdvReac Type Severity Reaction Status Date / Time
aspirin Allergy Anaphylaxis Verified 02/04/24 20:23
�Medication �Instructions �Recorded �Confirmed �Type
clopidogrel 75 mg tablet 75 mg PO DAILY 01/06/19 02/06/24 History
tamsulosin 0.4 mg capsule 0.4 mg PO HS 01/06/19 02/06/24 History
acetaminophen 325 mg capsule 325 mg PO ONCE PRN pain 04/12/22 02/06/24 History
(Tylenol)
nitroglycerin 0.4 mg sublingual 0.4 mg sublingual Q5-15M PRN chest 04/12/22 02/06/24 History
tablet pain
sitagliptin phos 50 mg-metformin 1 tab PO BID 04/12/22 02/06/24 History
ER 1,000 mg tablet,extend rel 24h
mp (Janumet XR)
isosorbide mononitrate 30 mg 120 mg PO DAILY 02/03/24 02/06/24 History
tablet,extended release 24 hr
aspirin 81 mg chewable tablet 81 mg PO DAILY #1 tab 02/05/24 02/06/24 Rx
atorvastatin 40 mg tablet 40 mg PO DAILY #90 tabs 02/05/24 02/06/24 Rx
lisinopril 10 mg tablet 5 mg (1/2 x 10 mg) PO DAILY #1 tab 02/05/24 02/06/24 Rx
metoprolol succinate 25 mg 25 mg PO BID #60 tabs 02/05/24 02/06/24 Rx
tablet,extended release 24 hr
Review of Systems
-
All other systems: Negative unless noted
Physical Exam
Vital Signs
Temp Pulse Resp BP Pulse Ox
98.0 F 70 16 117/51 96
02/07/24 07:55 02/07/24 07:57 02/07/24 07:55 02/07/24 07:57 02/07/24 07:55
Lab Results
02/07/24 06:48
02/07/24 06:48
Troponin I 0.266 ng/ml H* 02/07/24 06:48
Physical Exam
General: Well Developed
HEENT: Normocephalic
Respiratory: Clear and Non Labored Respirations
Cardiac: S1/S2 and Regular Rhythm
GI: Soft
Musculoskeletal: No Edema
Skin: Warm and Dry
Neuro: AO x 3
Hematologic/Lymphatic: No Lymphadenopathy
Impression / Plan
-
83-year-old male past medical history of CAD status post stents 2 days ago, CABG 20 years ago, hyperlipidemia, diabetes, BPH, prostate cancer, right bundle branch for, SVT, mild aortic root dilation, cataracts, presenting with ongoing intermittent
chest pain despite cardiac stents placed 2 days ago. This is possibly from ongoing small vessel disease.
CAD/CABGx4 2000- MV CAD by cath 02/02, Aspirin allergy - anaphylaxis post successful desensitization now post PCI mid RCA, RPDA and RPL x3 ABIGAIL 02/03
Possible ongoing CP due to small vessel disease, start amlodipine
medical therapy for small diagonal 1, PIRES to LAD patent
DAPT ASA/Plavix, reinforced importance of NEVER stopping ASA
continue isosorbide 120, metoprolol, add amlodipine cont lisinopril
f/u Dr. Raines 2-4 weeks
oob ambulate after am meds to assess chest pain
Hyperlipidemia - cont atorvastatin 40mg daily
NIDDM - resume janumet
BPH - continue tamsulosin
Prostate cancer
RBBB
SVT
Mild aortic root dilatation
mild MARY
Cataracts
Data Reviewed
-
EKG: Tracing Personally Visualized and interpreted (sr)
Medical Tests (Nuc Med, Echo etc): Report Reviewed by me
Labs: Labs Reviewed by me
[2024-02-07 12:37] LABS: Glucose - Point of Care 182 mg/dl (70-99)
[2024-02-07] MEDS: NORVASC 5 MG PO (12:37)
[2024-02-07 14:27] LABS: Glucose - Point of Care 221 mg/dl (70-99)
--- NOTE | 2024-02-07 14:38 | W.PN.UPDATE ---
Addendum entered and electronically signed by Lisa Blood MD 02/07/24 15:45:
Gautam called back--they do NOT want platelet transfusion so will cancel
Original Note:
Update Note
Progress Note Update
called to see patient re: word finding issues, doesn't know --moves all extremities
VS: afebrile, HR 73, RR 20, BP 131/76 98% RA Blood Sugar 221
GENERAL: well developed, well nourished,male in no apparent distress
HEENT: NC/AT--no facial droop
HEART: regular rate and rhythm, +S1, +S2, no irreg irreg rhythm
LUNGS : clear to auscultation bilaterally
ABDOM: soft, nontender, nondistended, + bowel sounds
EXT: no cyanosis, clubbing, or edema
NEUROLOGIC: moves both arms/legs--trouble with word finding--incorrect (son at bedside said pt sharp and seems off for about 1 hour)
EKG: SR RBBB, no ST or T Wave changes
STAT CT with large brain bleed
PLAN: transfer to ICU, call [facility] for transfer
accepting MD Dr. Yang--pt to go by air
transfuse platelets
HOLD ASA/PLAVIX
start Keppra 1000 mg IV BID
Keep SBP < 140 use nicardipine if needed
updated and son
Total Critical Care Time 60 minutes. I was immediately available to the patient and staff. I personally examined, reviewed labs, diagnostic images/reports, interpretations, treatment plans, discussed patient care with other providers and family
or caregivers (if patient is unable to make decisions), entered orders as appropriate and documented the medical record.
--- NOTE | 2024-02-07 14:54 | W.PN.UPDATE ---
Update Note
Progress Note Update
ASked to review a patient scan STAT by Dr. Blood.
Briefly reviewed hx and case of patient who had neurological changes and had CTH demonstrating large left frontal IPH, in setting of recent drug eluting stent placement several days prior and on ASA/plavix.
Discussed initial plan to:
transfer to ICU for q 1 hour neurochecks.
Strict sbp control less than 140, use nicardipine to do so.
HOB elevation
Discuss with cardiology regarding possible hold on antiplatelet agents, and even reversal, with platelet transfusion, DDAVP?
REpeat CTH in 4-6 hours, sooner if neurological changes.
Given complex cardiac hx, Dr. Blood may discuss transfer to [place] for tertiary cardiac and neuro ICU level of care.
[2024-02-07 15:02] LABS: INR 1.09; PT 13.9 Sec (11.4-14.6)
--- NOTE | 2024-02-07 15:02 | CON.NEURO4 ---
Consultation - Neurology 4
-
CONSULTING PHYSICIAN: Earl
REFERRING PHYSICIAN: Jeremi
DICTATED BY: Earl
DATE/TIME OF REQUEST: 02/07/24
DATE/TIME OF CONSULTATION: 02/07/24
Reason for Consultation: stroke alert
History of Present Illness:
83 year-old male with recent stent placement on 02/03 admitted with intermittent chest pain. He is currently DAPT. Today he developed expressive aphasia and confusion noted by his son around 1:30pm. He alerted staff of this change around 2:30pm.
Stroke alert was called. HCT shows a IPH with adjacent SAH and mild mass effect.
Past Medical History
Past Medical History: CAD status post stents 2 days ago, hyperlipidemia, diabetes, BPH, prostate cancer, right bundle branch for, SVT, mild aortic root dilation, cataracts
Past Surgical History: stent placement, CABG 20 years ago
Social History
Tobacco: Non-smoker
Alcohol: None
Drug: None
Family History
Family History: reviewed and noncontributory
Allergies
aspirin Allergy (Verified 02/04/24 20:23)
Anaphylaxis
Home Medications
�Medication �Instructions �Recorded
clopidogrel 75 mg tablet 75 mg PO DAILY Blood Clot 01/06/19
Prevention/Tx
tamsulosin 0.4 mg capsule 0.4 mg PO HS Urinary Issue 01/06/19
acetaminophen 325 mg capsule 325 mg PO ONCE PRN pain 04/12/22
(Tylenol)
nitroglycerin 0.4 mg sublingual 0.4 mg sublingual Q5-15M PRN chest 04/12/22
tablet pain
sitagliptin phos 50 mg-metformin 1 tab PO BID diabetes 04/12/22
ER 1,000 mg tablet,extend rel 24h
mp (Janumet XR)
isosorbide mononitrate 30 mg 120 mg PO DAILY Heart 02/03/24
tablet,extended release 24 hr Disease/Condition
aspirin 81 mg chewable tablet 81 mg PO DAILY #1 tab 02/05/24
atorvastatin 40 mg tablet 40 mg PO DAILY #90 tabs 02/05/24
metoprolol succinate 25 mg 25 mg PO BID #60 tabs 02/05/24
tablet,extended release 24 hr
lisinopril 10 mg tablet 5 mg PO DAILY Blood Pressure 02/07/24
Review of Symptoms:
Per the HPI. I am unable to obtain a complete review of systems�because of patient's inability to provide history.
Vital Signs
Temp Pulse Resp BP Pulse Ox
98.0 F 69 20 131/56 98
02/07/24 14:20 02/07/24 14:20 02/07/24 14:20 02/07/24 14:20 02/07/24 14:20
Lab Results
02/07/24 06:48
Sodium 136 mmol/L (135-145) 02/07/24 06:48
Potassium 3.7 mmol/L (3.5-5.1) 02/07/24 06:48
BUN 23 mg/dl (9-20) H 02/07/24 06:48
Glucose 164 mg/dl (70-99) H 02/07/24 06:48
Calcium 8.9 mg/dl (8.4-10.2) 02/07/24 06:48
Physical Exam:
The patient is afebrile, heart sounds S1 and S2 are regular, and chest is clear to auscultation bilaterally.
NIH Stroke Scale 02/07/24 at 255pm:
I performed the NIH stroke scale on the patient. The patient scored 5 points on the NIH stroke scale assessment, which were assigned as follows: see attached
Neurologic Examination:
The patient is awake, alert but confused. Able to follow basic commands. Has mixed expressive and receptive aphasia. +perseverates/repeating the initial line of the NIHSS cards. On cranial nerve assessment, pupils are 3 mm bilateral, round and
reactive to light and accommodation. Visual lyon appeared to be grossly full. Extraocular movements were grossly intact. Did not answer any questions regarding sensation. Mild R central CN 7 palsy. Hearing is intact bilaterally to normal
conversation volume. Tongue palate and uvula are midline. Sternocleidomastoid strengths are full bilaterally. Motor strengths are 5/5 bilateral upper and lower extremities on medical research [place] scale. There is no drift or involuntary movement
noted. Deep tendon reflexes are 1+ bilateral upper and lower extremities and Babinski is absent bilaterally. Coordination is intact by finger to nose bilaterally.
Neuro Imaging:
HCT:
There is a 5.5 x 3.4 x 2.4 cm intraparenchymal hematoma with surrounding edema along the superior left frontal lobe. There is adjacent small volume subarachnoid hemorrhage. There is mild local mass effect with partial effacement of the left lateral
ventricle. There is minimal midline shift.
Impression:
MANI MAGUIRE is a 83 year old M with recent stent placement on DAPT with spontaneous L frontal lobe IPH with surrounding edema and adjacent SAH. Mild local mass effect with partial effacement of the L lateral ventricle with minimal midline shift
noted.
Recommendations:
-emergent transfer to [place] neuro-ICU
-hold ASA/Plavix and give platelet transfusion per [place] recommendations
-SBP goal <140, use nicardipine
-HOB elevation
-loading with Keppra 1000mg IV q12.
-transfer to ICU while waiting for transport to [place]
Discussed patient care with: patient, patient's family, radiology, cardiology, Dr. Blood
Critical care time time 65 mins
NIH Stroke Scale
NIH Stroke Score
Date of Subsequent NIH Scale: 02/07/24
Time of Subsequent NIH Scale: 14:55
Level of Consciousness: 0 - Alert
LOC Questions: 2-Neither correct
LOC Commands: 0-Performs both correctly
Best Horizontal Gaze: 0-Normal
Visual [place]: 0=Normal, no visual loss
Facial Palsy: 1=Minor paralysis
Motor - Right Arm: 0=No drift 10 seconds
Motor - Left Arm: 0=No drift 10 seconds
Motor - Right Le-No drift 5 seconds
Motor - Left Le-No drift 5 seconds
Limb Ataxia: 0-Absent
Sensation: 0-Normal
Best Language: 2-Severe aphasia
Dysarthria: 0-Normal
Extinction and Inattention: 0-No abnormality
Total Score:: 5
[2024-02-07 15:03] LABS: APTT 26.9 Sec (23.4-35.0)
[2024-02-07 15:10] LABS: ALT (SGPT) 13 U/L (0-50); AST (SGOT) 21 U/L (17-59); Albumin 3.6 g/dl (3.5-5.0); Alkaline Phosphatase 57 U/L (38-126); Blood Urea Nitrogen 23 mg/dl (9-20); Calcium 8.9 mg/dl (8.4-10.2); Carbon Dioxide 18 mmol/L (22-30); Chloride 104 mmol/L (98-107); Estimated Creatinine Clearance 59 ml/min; Glucose 186 mg/dl (70-99); Potassium 4.3 mmol/L (3.5-5.1); Sodium 131 mmol/L (135-145); Total Bilirubin 0.9 mg/dl (0.2-1.3); eGFR > 60.00
--- NOTE | 2024-02-07 15:10 | CM ---
[facility]patient lives with his spouse in one story home with 2ste,his bed and bath is on the first level,he amb i and is I with his ADL.his pcp is dr estrellita vasquez and he uses [facility] in [place].no hx of
vn or ip rehab.
PMH:recent cardiac alicja 02/03 on asa/plavix,cabg,svt.type 2 dm,prostate ca,kidney disease
patient is adm with recurring chest pain after cardiac stent placed,in ivf,ct head showed large left frontal IPH,patient tx to icu for hourly neuro monitoring.patient may tx to [facility] for cardiac and neuro icu managment.
--- NOTE | 2024-02-07 15:37 | RR ---
1415 Pt presented with a change in mental status. Pt AAOx1. Pt could not state he name or . GCS-13 , NIH-4. Dr. Blood made aware and at bedside. Stroke Alert an Rapid Response called. Please see rapid response sheet.
--- NOTE | 2024-02-07 15:41 | PTCARENOTE ---
1510- Report called to [facility] and patient transferred.
[2024-02-07] MEDS: NSS 1000 IV (15:48)
[2024-02-07] MEDS: KEPPRA 1000 MG IV (15:51)
--- NOTE | 2024-02-07 15:55 | W.DCSUMMARY ---
Addendum entered and electronically signed by Lisa Blood MD 02/08/24 15:45:
ICH bleed likely exacerbated by aspirin/plavix
Original Note:
Discharge Summary
Discharge Data
Date of Admission: 02/06/24
Date of Discharge: 02/07/24
-
Pending Results: No
Hospital Course
Discharging Physician : Lisa Blood MD
Disposition : [facility]
Primary care physician : Chadwick Bacon
Principal Discharge diagnosis : Intracranial bleed, chest pain, acute kidney injury secondary to contrast from cath
Chronic Discharge diagnosis : Mild aortic root dilation, history of supraventricular tachycardia, hyperlipidemia, type 2 diabetes mellitus, benign prostatic hyperplasia, prostate cancer, cataracts
Hospital Course : Patient was an 83-year-old male with a history of coronary artery disease status post CABG 20 years ago and had cardiac catheterization with right circumflex stents placed on February 04, 2024. Patient had ongoing intermittent chest
pain despite the cardiac cath with stent placement. He describes it as the pain prior to when his stents were placed. He describes it as chest pressure which radiates to the jaw and sometimes with exertion. The pain is improved but still comes
after the stents were placed. On the night prior to admission, the patient could not sleep due to the pain and his heart rate was elevated. He did take nitroglycerin and the pain improved. He called his culinary intern at [employer] who told him to
come to the hospital. Patient was admitted.
Problem #1: Intracranial bleed. Patient was neurologically intact and normal when I saw him earlier in the morning. I was called by nursing that the patient was having difficulty speaking and did not know his date of . Stroke alert was
called. CAT scan was done which showed a 5.5 x 3.4 x 2.4 cm intraparenchymal hematoma with surrounding edema along the superior left frontal lobe. There was adjacent small volume subarachnoid hemorrhage. There was mild local mass effect with
partial effacement of the left lateral ventricle. There is minimal midline shift. Neurology accompanied him to CAT scan and evaluated him at bedside. I did speak with our neurosurgeon second worker here who agreed with transfer to [facility] given his recent
cardiac intervention.
I spoke with the [facility] transfer center. Dr. Yang is the accepting physician. Recommendations were to stop aspirin and Plavix and give platelet transfusion. Also, start Keppra 1 g IV twice daily along with normal saline solution IV. A.m. labs
showed a sodium of 136 and at the stroke alert sodium level was 131. This is what prompted the normal saline IV fluid. Patient has been accepted as a level 0 and will go by air transport as soon as a bed in the NICU was available. Platelet
transfusion was ordered; however, [facility] called back and stated that they did not wish to transfuse platelets at this time. Other recommendations were to keep the systolic blood pressure less than 140 along with every hour neurochecks.
There is no objection to stopping aspirin and Plavix acutely from cardiology. They were notified of the findings and were of assistance in talking with [facility]. All are in agreement with transfer to [facility].
Problem #2: Chest pain. This was the admitting diagnosis. EKG did not show any significant findings. He was seen in consultation by cardiology. Chest pain was thought to be due to small vessels unable to be stented. Amlodipine was started to
help control blood pressure. Otherwise recommendations were for medical management.
Problem #3: Acute kidney injury secondary to IV contrast from the cath. Patient had a creatinine of 1.4 on admission. He was started on IV fluids with normal saline. Creatinine this morning was back to baseline at 1.0. Janumet was held initially
and restarted once the creatinine normalized.
Problem #4: All other medical issues. These include Mild aortic root dilation, history of supraventricular tachycardia, hyperlipidemia, type 2 diabetes mellitus, benign prostatic hyperplasia, prostate cancer, cataracts. These medical issues were
stable during his hospitalization. Medications were continued as able.
Patient is stable for transfer to [facility] neurointensive care unit at this time. If there are any questions regarding this dictation or his hospital stay, please do not hesitate to call. Our office number is
[phone].
Time for discharge 90 minutes.
Important imaging findings :
HEAD CT IMPRESSION:
There is a 5.5 x 3.4 x 2.4 cm intraparenchymal hematoma with surrounding edema along the superior left frontal lobe. There is adjacent small volume subarachnoid hemorrhage. There is mild local mass effect with partial effacement of the left lateral
ventricle. There is minimal midline shift.
Discharge Plan
-
Patient Disposition: Acute Care Hospital
Discharge Orders:
Discharge Patient (As Directed); Ordered 02/07/24
Ordered By: Lisa Blood
Discharge Date and Time
Print Language: WELSH
--- NOTE | 2024-02-07 16:25 | PTCARENOTE ---
patient received from [facility], assessments per work list. NIH 4 for expressive/receptive aphasia. keppra given, iv fluids initiated. family at bedside. phone report called to Francoise [phone]. family updated at bedside
--- NOTE | 2024-02-07 16:50 | PTCARENOTE ---
care transfer to [facility] [employer]
== END 2024-02-07 16:52 | disposition short-term general hospital (02) ==
LOC: ICU 19:51
PROVIDERS: ADMITTING PHYSICIAN Hospitalist; ATTENDING PHYSICIAN Internal Medicine; CONSULT PHYSICIAN Internal Medicine Cardiovascular Disease; EMERGENCY PHYSICIAN Emergency Medicine; OTHER PHYSICIAN Psychiatry & Neurology Neurology
DX: I60.7 Nontraumatic subarachnoid hemorrhage from unspecified intracranial artery (principal); G93.6 Cerebral edema; D68.32 Hemorrhagic disorder due to extrinsic circulating anticoagulants; G51.0 Bell's palsy; R47.01 Aphasia; R41.0 Disorientation, unspecified; I47.10 Supraventricular tachycardia, unspecified; R07.89 Other chest pain; I25.10 Atherosclerotic heart disease of native coronary artery without angina pectoris; I45.10 Unspecified right bundle-branch block; E78.5 Hyperlipidemia, unspecified; N40.0 Benign prostatic hyperplasia without lower urinary tract symptoms; E11.36 Type 2 diabetes mellitus with diabetic cataract; N17.8 Other acute kidney failure; N14.11 Contrast-induced nephropathy; T50.8X5A Adverse effect of diagnostic agents, initial encounter; Y92.239 Unspecified place in hospital as the place of occurrence of the external cause; Z85.46 Personal history of malignant neoplasm of prostate; Z86.79 Personal history of other diseases of the circulatory system; Z88.6 Allergy status to analgesic agent; Z95.5 Presence of coronary angioplasty implant and graft; Z95.1 Presence of aortocoronary bypass graft; Z79.02 Long term (current) use of antithrombotics/antiplatelets; Z79.84 Long term (current) use of oral hypoglycemic drugs; Z79.82 Long term (current) use of aspirin
CPT/HCPCS: 70450; 71045; 80048; 80053; 82962; 84484; 85025; 85027; 85610; 85730; 86850; 86900; 86901; 93005; 99285; G0378

== ENCOUNTER 2024-12-20 08:45 | Inpatient (IN) | payer MEDICARE, BC, SELFPAY ==
[2024-12-20] VITALS (26 sets, daily range): BP systolic 91–143; BP diastolic 45–88; BMI 24.9
--- NOTE | 2024-12-20 09:44 | HPS.HSE ---
Addendum entered and electronically signed by Will Pulliam MD 12/20/24 14:33:
Patient seen and examined in collaboration with COMMISSIONS COORDINATOR; agree with below.
- 84-year-old male with remote CABG and subsequent PCI (01/2024), hypertension, hyperlipidemia, and diabetes being admitted for aspirin desensitization.
- The patient has no current cardiac symptoms/complaints.
- Patient should be monitored in the ICU as per aspirin desensitization protocol.
- recording engineer.
- Discharge to home tomorrow after being monitored for 24 hours.
Original Note:
Family Physician
-
Family Physician: Chadwick Bacon
Chief Complaint
-
Aspirin allergy
History of Present Illness
Baltazar Mckeon is an 84-year-old male with CAD (CABG in the early and PCI 01/2024), RBBB, SVT, aortic root dilation, hypertension, dyslipidemia, type 2 diabetes mellitus, and prostate cancer who presents for aspirin desensitization. His
aspirin was [facility] by [facility] He is here for desensitization as the plan is for lifelong aspirin given his PCI less than 1 year ago. He is feeling well without chest pain, shortness of breath, and dizziness. Mr. Mckeon has been
desensitized twice before.
Medical History
Past Medical History
Past Medical History: Reports Arrhythmia (SVT, RBBB), CAD, HTN, Hypercholesterolemia, NIDDM and Valvular Disease (Aortic root dilation)
Past Surgical History: Reports Cardiac
Social History
Tobacco: Non-smoker
Alcohol: None
Drug: None
Employment: Retired
Family History
Family History: Not pertinent
Allergies / Home Medications
Allergies reflects when Allergies were last updated in [employer].
Home Medications with original date entered in [employer]
Allergy/Medication List:
Allergies:
Aspirin caused anaphylaxis
Home medication list:
Atorvastatin 40 mg daily
Clopidogrel 75 mg daily
Hydrochlorothiazide 25 mg p.o. daily
Isosorbide mononitrate 60 mg p.o. daily
Lisinopril 10 mg p.o. daily
Metformin 1000 mg p.o. 08 100, 1700
Metoprolol succinate 25 mg p.o. twice daily
Nitroglycerin 0.4 mg sublingual every 5�15 minutes as needed chest pain
Saxagliptin 5 mg p.o. daily
Tamsulosin 0.4 mg p.o. every evening
Review of Systems
-
History Source: Patient
A 12 point ROS was completed and negative except as noted: Yes
Constitutional: Reports No Symptoms
EENT: Reports No Symptoms
Respiratory: Reports No Symptoms
Cardiac: Reports No Symptoms
Abdomen/GI: Reports No Symptoms
: Reports No Symptoms
Musculoskeletal: Reports No Symptoms
Skin: Reports No Symptoms
Neurological: Reports No Symptoms
Endocrine: Reports No Symptoms
Hematologic/Lymphatic: Reports No Symptoms
Psych: Reports No Symptoms
Physical Exam
Vital Signs
Vital Signs
Temp
97.9 F
12/20/24 09:21
Physical Exam
General: Well Developed, Well Nourished, No Apparent Distress and Comfortable
HEENT: NormoCephalic, Anicteric and Moist mucous membranes
Respiratory: Clear and Non Labored Respirations
Cardiac: S1/S2 and Regular Rhythm; No Peripheral Edema
GI: Soft, Non Tender, Non Distended and Normal Bowel Sounds
Rectal: Deferred by Provider
Genito-urinary: Deferred by me
Musculoskeletal: No Clubbing and No Cyanosis
Skin: Warm and Dry
Neuro: AO x 3
Hematologic/Lymphatic: No Lymphadenopathy
Psych: Calm and Intact Judgment/Insight
Data Reviewed
-
Diagnostic Radiology: Report Reviewed by me
Old Records: Reviewed
Impression/Plan
-
I/P: 84M with CAD (CABG in the early and PCI 01/2024), RBBB, SVT, aortic root dilation, hypertension, dyslipidemia, type 2 diabetes mellitus, and prostate cancer who presents for aspirin desensitization. His aspirin was stopped by [facility].
Outpatient [facility]: [facility]
Aspirin desensitization
-Per protocol
-Plan reviewed at the beside with patient and family
-Goal dose 81mg
CAD, prior PCI 01/2024, EKG stable, stable without chest pain
HTN, chronic and stable
HLD, on atorvastatin
RBBB, chronic
Aortic root dilation, per primary mover helper
Type II DM, no S/S of hypoglycemia
Anemia, chronic, denies abnormal bleeding
[2024-12-20 10:11] LABS: Hematocrit 32.0 % (39.0-52.0); Hemoglobin 10.5 g/dL (13.0-18.0); Mean Corp Hgb Conc. 32.8 g/dL (33.0-37.0); Mean Corpuscular Volume 81.2 fL (80.0-94.0); Platelet Count 201 10^3/uL (130-400); Red Cell Dist. Width 14.9 % (11.5-14.5)
[2024-12-20 10:25] LABS: Blood Urea Nitrogen 32 mg/dl (9-20); Calcium 9.0 mg/dl (8.4-10.2); Carbon Dioxide 23 mmol/L (22-30); Chloride 107 mmol/L (98-107); Estimated Creatinine Clearance 55 ml/min; Glucose 159 mg/dl (70-99); Potassium 4.0 mmol/L (3.5-5.1); Sodium 139 mmol/L (135-145); eGFR > 60.00
[2024-12-20] MEDS: ASPIRIN FOR DESENSITIZATION 5 MG PO (10:42)
--- NOTE | 2024-12-20 10:49 | PTCARENOTE ---
see MAR for times, first dose aspirin given per protocol. family bedside. VS stable, no c/o, watching TV.
[2024-12-20] MEDS: ASPIRIN FOR DESENSITIZATION 10 MG PO (11:11)
[2024-12-20] MEDS: ASPIRIN FOR DESENSITIZATION 20 MG PO (11:41)
[2024-12-20 11:57] LABS: Glucose - Point of Care 96 mg/dl (70-99)
[2024-12-20] MEDS: ASPIRIN FOR DESENSITIZATION 40 MG PO (12:11)
[2024-12-20] MEDS: LOW STRENGTH ASPIRIN 81 MG PO (12:41)
--- NOTE | 2024-12-20 12:54 | PTCARENOTE ---
see MAR. Eating lunch, family bedside.
--- NOTE | 2024-12-20 13:45 | PTCARENOTE ---
Dr. Pulliam in to visit patient, updated, reviewed plans for overnight stay with pt and daughter. call valdez in reach, no c/o. Instructed to report onset any c/o or other symptoms of any allergy.
[2024-12-20] MEDS: GLUCOPHAGE 1000 MG PO (17:11)
[2024-12-20 17:18] LABS: Glucose - Point of Care 121 mg/dl (70-99)
--- NOTE | 2024-12-20 17:22 | PTCARENOTE ---
oob, self cathed without diff, presently in recliner awaiting dinner. physical assessment unchanged, no c/o, no s/s any sort of allergic reaction.
--- NOTE | 2024-12-20 20:30 | PTCARENOTE ---
technical support director, pt aaox3, OOB in chair. denies pain. SR HR 60s. LFA IV WNL. RA Sat 98%. POC discussed, call valdez with pt.
[2024-12-20] MEDS: TOPROL XL 25 MG PO (20:33)
[2024-12-20] MEDS: FLOMAX 0.4 MG PO (20:33)
[2024-12-20 22:18] LABS: Glucose - Point of Care 106 mg/dl (70-99)
[2024-12-21] VITALS (10 sets, daily range): BP systolic 110–131; BP diastolic 39–97; BMI 24.3
--- NOTE | 2024-12-21 | PTCARENOTE ---
no changes in pt assessment.
[2024-12-21 05:28] LABS: Blood Urea Nitrogen 26 mg/dl (9-20); Calcium 9.2 mg/dl (8.4-10.2); Carbon Dioxide 26 mmol/L (22-30); Chloride 107 mmol/L (98-107); Estimated Creatinine Clearance 63 ml/min; Glucose 129 mg/dl (70-99); Potassium 3.9 mmol/L (3.5-5.1); Sodium 141 mmol/L (135-145); eGFR > 60.00
[2024-12-21 07:40] LABS: Glucose - Point of Care 137 mg/dl (70-99)
--- NOTE | 2024-12-21 08:00 | PTCARENOTE ---
Patient here for aspirin desensitization. Assessment is benign. He is AAOx4, on room air, sinus rhythm on monitor. has been ambulating independently in room. Using rest room as needed. No issues overnight, no signs of allergic reaction. plan to
discharge this morning.
[2024-12-21] MEDS: JANUVIA 100 MG PO (08:17)
[2024-12-21] MEDS: IMDUR (EXTENDED RELEASE) 60 MG PO (08:17)
[2024-12-21] MEDS: GLUCOPHAGE 1000 MG PO (08:17)
[2024-12-21] MEDS: TOPROL XL 25 MG PO (08:17)
[2024-12-21] MEDS: ZESTRIL 10 MG PO (08:17)
[2024-12-21] MEDS: LIPITOR 40 MG PO (08:17)
[2024-12-21] MEDS: LOW STRENGTH ASPIRIN 81 MG PO (08:17)
[2024-12-21] MEDS: ORETIC 25 MG PO (08:17)
[2024-12-21] MEDS: PLAVIX 75 MG PO (08:18)
--- NOTE | 2024-12-21 09:43 | W.DS.TRANS ---
DC Summary - Fleet Mechanic
-
Discharge Instructions:
Discharge Diagnosis/Procedures Aspirin desensitization
Diet Diabetic, Carb Controlled,2 Gram Sodium,Low
Cholesterol
Activity No restrictions
Driving Restrictions As prior to admission
Bathing Restrictions None
Instructions:
Stand-Alone Forms:
Changes to Home Medications: Yes
Discharge Medications:
DC Medications w/original date entered in [employer]
clopidogrel 75 mg tablet 75 mg PO DAILY Blood Clot Prevention/Tx 01/06/19
tamsulosin 0.4 mg capsule 0.4 mg PO HS Urinary Issue 01/06/19
nitroglycerin 0.4 mg sublingual tablet 0.4 mg sublingual Q5-15M PRN chest pain 04/12/22
ferrous sulfate 325 mg (65 mg iron) tablet 325 mg PO QMWF Supplement #0 tabs 03/04/24
metformin 1,000 mg tablet 1,000 mg PO BID@0800,1700 Diabetes 30 days #60 tabs 03/04/24
metoprolol succinate 25 mg tablet,extended release 24 hr 25 mg PO BID Blood pressure #60 tabs 03/04/24
aspirin 81 mg chewable tablet 81 mg PO DAILY #90 tabs 12/20/24
atorvastatin 40 mg tablet 40 mg PO DAILY High Cholesterol 12/20/24
hydrochlorothiazide 25 mg tablet 25 mg PO DAILY Blood Pressure 12/20/24
isosorbide mononitrate 30 mg tablet,extended release 24 hr 60 mg PO DAILY Blood pressure 12/20/24
lisinopril 10 mg tablet 10 mg PO DAILY Blood Pressure 12/20/24
saxagliptin 5 mg tablet 5 mg PO DAILY Diabetes 12/20/24
Home Medication Changes
Aspirin is NEW
Pending Results: No
--- NOTE | 2024-12-21 09:59 | CM ---
Patient has been medically cleared for discharge to home with no additional skilled services. Patient has arranged for transport home. IMM signed on admission 12/20/24 with 48 hour time frame from discharge.
--- NOTE | 2024-12-21 15:59 | W.PN.CD ---
Today's Communication / Plan
-
d/c
Impression / Plan
-
A/P: 84M with CAD (CABG in the early and PCI 01/2024), RBBB, SVT, aortic root dilation, hypertension, dyslipidemia, type 2 diabetes mellitus, and prostate cancer who presents for aspirin desensitization. His aspirin was stopped by [facility].
Outpatient Casing Runner: [facility]
Aspirin desensitization
-successful, now on aspirin 81 mg daily
CAD, prior PCI 01/2024, EKG stable, stable without chest pain
HTN, chronic and stable
HLD, on atorvastatin
RBBB, chronic
Aortic root dilation, per primary director of research center
Type II DM, no S/S of hypoglycemia
Anemia, chronic, denies abnormal bleeding
Physical Exam
Vital Signs/Labs
Vital Signs
Temp Pulse Resp BP Pulse Ox
97.6 F 84 18 114/86 96
12/21/24 07:31 12/21/24 10:00 12/21/24 10:00 12/21/24 09:00 12/21/24 09:45
12/20/24 12/21/24 12/22/24
06:59 06:59 06:59
Actual Weight 136 lb 14.513 oz
12/20/24 09:57
12/21/24 04:44
Physical Exam
Constitutional: No acute distress and Comfortable
EENT: Anicteric
Cardiovascular: Rhythm & rate is regular and Pedal edema is absent
Respiratory: Respiratory effort normal
GI: Soft
Neuro/Psych: AO x 3
Data Reviewed
-
Date of Service: December 21, 2024
Medical Decision Making: Reviewed Test Results
EKG: Tracing Personally Visualized and interpreted (sr)
Labs: Labs Reviewed by me
== END 2024-12-21 10:20 | disposition home or self-care (01) | DRG 303 ==
LOC: ICU 08:45
PROVIDERS: Nurse Practitioner Gerontology; Nurse Practitioner Primary Care; ADMITTING PHYSICIAN Internal Medicine Cardiovascular Disease; FAMILY PHYSICIAN Family Medicine; REFERRING PHYSICIAN Internal Medicine Cardiovascular Disease
DX: I25.10 Atherosclerotic heart disease of native coronary artery without angina pectoris (principal); Z88.6 Allergy status to analgesic agent; E78.00 Pure hypercholesterolemia, unspecified; I10 Essential (primary) hypertension; Z79.84 Long term (current) use of oral hypoglycemic drugs; E11.9 Type 2 diabetes mellitus without complications; D63.8 Anemia in other chronic diseases classified elsewhere; I45.10 Unspecified right bundle-branch block; Z85.46 Personal history of malignant neoplasm of prostate; I77.810 Thoracic aortic ectasia; Z95.1 Presence of aortocoronary bypass graft; Z98.61 Coronary angioplasty status
CPT/HCPCS: 80048; 82962; 85027; 93005